=== PATIENT | female | born 1980 | race Caucasian/White ===

== ENCOUNTER 2016-09-09 21:20 | Emergency (ER) | payer OTHER ==
[2016-09-09 21:29] VITALS: BP 104/66; PULSE 87; TEMP 98.5; BMI 22.4
--- NOTE | 2016-09-10 00:07 | PDOC ---
History of Present Illness - General History Source: Patient Exam Limitations: No Limitations - History of Present Illness Initial Comments: 09/10/16 00:08 The patient is a 35 year old female with no significant past medical history, who presents to the ED with dysuria, urinary frequency and urinary urgency since early today. She reports superpubic pain secondary to urinary symptoms. She denies back pain. She reports having UTIs in the past with similar symptoms. She denies fever, chills, nausea, vomiting. <Toni Lynch - Last Filed: 09/10/16 00:08> - General History Source: Patient Exam Limitations: No Limitations <Viviane Henrandez - Last Filed: 09/10/16 00:59> - General Chief Complaint: Urinary Problem Stated Complaint: URINARY PROBLEM Past History <Toni Lynch - Last Filed: 09/10/16 00:08> - Psycho/Social/Smoking Cessation Hx Anxiety: No Suicidal Ideation: No Smoking History: Never smoked Have you smoked in the past 12 months: No Number of Cigarettes Smoked Daily: 0 If you are a former smoker, when did you quit?: 2YRS Information on smoking cessation initiated: No Hx Alcohol Use: No Drug/Substance Use Hx: No Substance Use Type: Alcohol Hx Substance Use Treatment: No <Viviane Hernandez - Last Filed: 09/10/16 00:59> - Past Medical History Allergies/Adverse Reactions: Allergies Allergy/AdvReac Type Severity Reaction Status Date / Time No Known Drug Allergies Allergy Verified 09/09/16 21:29 Home Medications: Ambulatory Orders Sulfamethoxazole/Trimethoprim [Bactrim Ds -] 1 tab PO BID #14 tablet 09/10/16 Review of Systems - Review of Systems Able to Perform ROS?: Yes Comments:: 09/10/16 00:08 GENERAL/CONSTITUTIONAL: No fever or chills. No weakness. HEAD, EYES, EARS, NOSE AND THROAT: No change in vision. No ear pain or discharge. No sore throat. CARDIOVASCULAR: No chest pain or shortness of breath. RESPIRATORY: No cough, wheezing, or hemoptysis. GASTROINTESTINAL: No nausea, vomiting, diarrhea or constipation. GENITOURINARY: + dysuria. + frequency + urgency. MUSCULOSKELETAL: No joint or muscle swelling or pain. No neck or back pain. SKIN: No rash NEUROLOGIC: No headache, vertigo, loss of consciousness, or change in strength/ sensation. ENDOCRINE: No increased thirst. No abnormal weight change. HEMATOLOGIC/LYMPHATIC: No anemia, easy bleeding, or history of blood clots. ALLERGIC/IMMUNOLOGIC: No hives or skin allergy. <Toni Lynch - Last Filed: 09/10/16 00:08> *Physical Exam - Vital Signs Last Vital Signs Temp Pulse Resp BP Pulse Ox 98.5 F 87 18 104/66 97 09/09/16 21:24 09/09/16 21:24 09/09/16 21:24 09/09/16 21:24 09/09/16 21:24 - Physical Exam Comments: 09/10/16 00:09 GENERAL: Awake, alert, and fully oriented, in no acute distress HEAD: No signs of trauma EYES: PERRLA, EOMI, sclera anicteric, conjunctiva clear ENT: Auricles normal inspection, hearing grossly normal, nares patent, oropharynx clear without exudates. Moist mucosa NECK: Normal ROM, supple, no lymphadenopathy, JVD, or masses LUNGS: Breath sounds equal, clear to auscultation bilaterally. No wheezes, and no crackles HEART: Regular rate and rhythm, normal S1 and S2, no murmurs, rubs or gallops ABDOMEN: Superpubic tenderness. soft, normoactive bowel sounds. No guarding, no rebound. No masses BACK: left CVA tenderness. EXTREMITIES: Normal range of motion, no edema. No clubbing or cyanosis. No cords, erythema, or tenderness NEUROLOGICAL: Normal speech, normal gait SKIN: Warm, Dry, normal turgor, no rashes or lesions noted. <Toni Lynch - Last Filed: 09/10/16 00:08> - Vital Signs Last Vital Signs Temp Pulse Resp BP Pulse Ox 98.5 F 87 18 104/66 97 09/09/16 21:24 09/09/16 21:24 09/09/16 21:24 09/09/16 21:24 09/09/16 21:24 <Viviane Hernandez - Last Filed: 09/10/16 00:59> Procedures - Bedside Ultrasound Other: REnal : see [facility] for report <Viviane Hernandez - Last Filed: 09/10/16 00:59> Medical Decision Making - Medical Decision Making 09/10/16 00:05 35 yo F with h/o frequent UTI, here with burning with urination since this am, frequency, urgency. no flank pain. no n/v no f/c. LMP one week ago. h/o irregular periods. no vaginal complaints. usually has been on cipro for infections. no other complaints. on exam awake alert lungs clear. heart RRR no m/r/g. abd soft mild suprapubic ttp. no rebound no guarding. mild left cva ttp. ext wwp skin warm and dry. alert and oriented x 3 differential: , uti, plan treat for uti with keflex, ucg culture. pyridium and tylenol 09/10/16 00:57 focused ED ultrasound performed renal, indication : hematuria, urinary sxs finding: bilateral kidneys scanned in two planes. no hydronephrosis noted.small lhyperechoic focus left kidney could represent stone or calcification kidneys normal in size. no cyst noted. bladder nondistended. impression: normal renal ultrasound no hydronephrosis. calcification vs. small stone in left kidney. 09/10/16 00:59 d/w pt she is still spotting from period. possible blood in urine from that. rec urology or obstetrics/gynecology nurse followup. dc on bactrim. <Viviane Hernandez - Last Filed: 09/10/16 00:59> *DC/Admit/Observation/Transfer - Attestations Scribe Attestion: 09/10/16 00:10 Documentation prepared by Toni Lynch, acting as medical sales specialist for Viviane Hernandez MD, MD. <Toni Lynch - Last Filed: 09/10/16 00:08> - Discharge Dispostion Admit: No <Viviane Hernandez - Last Filed: 09/10/16 00:59> Diagnosis at time of Disposition: Hematuria, UTI (urinary tract infection) - Prescriptions Prescriptions: Sulfamethoxazole/Trimethoprim [Bactrim Ds -] 1 tab PO BID #14 tablet - Referrals Referrals: Jessi Valentine [Primary Care Provider] - Hemant Way MD., MD [Staff Physician] - - Patient Instructions Printed Discharge Instructions: Urinary Tract Infection, Blood in Urine Additional Instructions: you should take bactrim twice daily x 7 days. return for persistant symtpoms, fever or any concerns. you should follow up with your manager simulation or a urologist to ensure that your blood in urine clears with treatment of infection. you can follow up with urologist Dr Way or Hai call to schedule see referral number.
[2016-09-10] MEDS ORDERED: SULFAMETHOXAZOLE/TRIMETHOPRIM 800MG/160MG D.S. TABLET PO ONE (00:08)
[2016-09-10] MEDS ORDERED: PHENAZOPYRIDINE HCL 100 MG TABLET (FP) PO ONE (00:08)
[2016-09-10] MEDS ORDERED: PHENAZOPYRIDINE HCL 100 MG TABLET (FP) ONE (00:27)
[2016-09-10] MEDS ORDERED: SULFAMETHOXAZOLE/TRIMETHOPRIM 800MG/160MG D.S. TABLET ONE (00:27)
[2016-09-10 00:34] LABS: URINE APPEARANCE CLEAR; URINE BILIRUBIN NEGATIVE (NEGATIVE); URINE COLOR YELLOW; URINE GLUCOSE (UA) NEGATIVE (NEGATIVE); URINE KETONE NEGATIVE (NEGATIVE); URINE LEUK ESTERASE NEGATIVE (NEGATIVE); URINE NITRITE NEGATIVE (NEGATIVE); URINE UROBILINOGEN NEGATIVE E.U./dl (0.2-1.0)
[2016-09-10 00:35] LABS: URINE BLOOD 3+ (NEGATIVE); URINE PROTEIN 1+ (NEGATIVE)
[2016-09-10 00:59] LABS: URINE MUCUS RARE; URINE RBC 2 /hpf (0-3); URINE WBC 2 /hpf (3-5)
== END 2016-09-10 01:28 | disposition home or self-care (01) ==
LOC: JER 21:20 → JERFT 21:20 → JER 09-10 01:28
DX: N39.0 Urinary tract infection, site not specified (principal); R31.9 Hematuria, unspecified
CPT/HCPCS: 81003; 81015; 84703; 87086; 99281-25

== ENCOUNTER 2018-07-04 15:01 | Emergency (ER) | payer OTHER ==
--- NOTE | 2018-07-04 15:11 | PDOC ---
Rapid Medical Evaluation Time Seen by Provider: 07/04/18 15:10 Medical Evaluation: Allergies Allergy/AdvReac Type Severity Reaction Status Date / Time No Known Drug Allergies Allergy Verified 07/04/18 15:10 07/04/18 15:10 I have performed a brief in-person evaluation of this patient. The patient presents with a chief complaint of: sore throat x 2 days, unable to jen po. H/o breast ca s/p mastectomy, chemo and xrt 2017 Pertinent physical exam findings:Mildly tachy but well renita w/ clear oropharynx I have ordered the following:strep The patient will proceed to the ED for further evaluation. 07/04/18 15:15 Discharge Disposition - Diagnosis Throat pain - Referrals - Patient Instructions - Post Discharge Activity
[2018-07-04 15:13] VITALS: BP 102/57; PULSE 102; TEMP 99.7; BMI 21.7
[2018-07-04] MEDS ORDERED: ONDANSETRON *ODT* 4 MG TABLET ONE (16:31)
--- NOTE | 2018-07-04 16:35 | PDOC ---
History of Present Illness - General Chief Complaint: Sore Throat Stated Complaint: SORE THROAT Time Seen by Provider: 07/04/18 15:10 History Source: Patient Exam Limitations: No Limitations - History of Present Illness Initial Comments: 07/04/18 16:44 Patient came to the emergency department for evaluation progress worsening sore throat pain, general malaise, and nausea. Has completed treatment for breast cancer last year, saw her oncologist 3 days ago who started her on tamoxifen. Patient states had onset of pain to her throat yesterday, is progressively worsened. Has runny nose, and nauseousness has caused her to feel dehydrated. Patient has taken no medications for relief of same. 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 Timing/Duration: unsure, 24 hours Severity: moderate Associated Symptoms: reports: cough, fever/chills Past History - Travel Traveled outside of the country in the last 30 days: No Close contact w/someone who was outside of country & ill: No - Past Medical History Allergies/Adverse Reactions: Allergies Allergy/AdvReac Type Severity Reaction Status Date / Time No Known Drug Allergies Allergy Verified 07/04/18 15:10 Home Medications: Ambulatory Orders Sulfamethoxazole/Trimethoprim [Bactrim Ds -] 1 tab PO BID #14 tablet 09/10/16 Azithromycin [Zithromax -] 250 mg PO UTDICT #6 tab 07/04/18 Ondansetron [Zofran *Odt*] 4 mg SL PRN PRN #14 od.tablet 07/04/18 COPD: No Other medical history: BREAST CA - Immunization History Immunization Up to Date: Yes - Suicide/Smoking/Psychosocial Hx Smoking History: Never smoked Have you smoked in the past 12 months: No Number of Cigarettes Smoked Daily: 0 If you are a former smoker, when did you quit?: 2YRS Hx Alcohol Use: No Drug/Substance Use Hx: No Substance Use Type: Alcohol Hx Substance Use Treatment: No Review of Systems - Review of Systems Able to Perform ROS?: Yes Is the patient limited Belarusian proficient: Yes Constitutional: Yes: Symptoms Reported, See HPI, Chills, Fever, Malaise HEENTM: Yes: Symptoms Reported, See HPI, Nose Congestion, Throat Pain, Throat Swelling, Difficulty Swallowing Respiratory: Yes: Symptoms reported Musculoskeletal: Yes: Symptoms Reported Integumentary: No: Symptoms Reported Neurological: Yes: Symptoms reported, See HPI, Headache, Weakness All Other Systems: Reviewed and Negative *Physical Exam - Vital Signs Last Vital Signs Temp Pulse Resp BP Pulse Ox 99.7 F H 102 H 18 102/57 L 96 07/04/18 15:10 07/04/18 15:10 07/04/18 15:10 07/04/18 15:10 07/04/18 15:10 - Physical Exam General Appearance: Yes: Nourished, Appropriately Dressed, Apparent Distress, Mild Distress, Moderate Distress HEENT: positive: KARIME, TMs Normal, Tonsillar Erythema, Nasal Congestion, Rhinorrhea. negative: Pharynx Normal, Tonsillar Exudate Neck: positive: Tender, Supple, Lymphadenopathy (R), Lymphadenopathy (L) Respiratory/Chest: positive: Lungs Clear, Normal Breath Sounds Gastrointestinal/Abdominal: positive: Soft. negative: Tender Musculoskeletal: positive: Normal Inspection Extremity: positive: Normal Capillary Refill, Normal Inspection, Normal Range of Motion Integumentary: positive: Dry, Warm, Pale, Moist (mucous membraine ), Other Neurologic: positive: safety risk lead II-XII NML intact, Fully Oriented, Alert, Normal Mood/ Affect, Normal Response, Motor Strength 5/5 *DC/Admit/Observation/Transfer Diagnosis at time of Disposition: Upper respiratory infection, viral - Discharge Dispostion Disposition: HOME Condition at time of disposition: Stable Decision to Admit order: No - Referrals - Patient Instructions Printed Discharge Instructions: DI for Viral Upper Respiratory Infection -- Adult Additional Instructions: Rest, drink lots of fluids: Teas, water, soups, Pedialyte Saltwater gargles Steamy showers/seem to face break up mucus Avoid contact with others until fevers and cough resolved Lots of handwashing and good hygiene Continue [id number] medications for symptomatic relief Tylenol or Motrin for fever and pain MaY USE Zofran tab every 8 hours for nausea and vomiting. START Zithoromax for worsen symptoms/ fevers greater than 101.5, cough with phlegm.. Notify Private Dr if needed to start Followup with private physician in one to 2 days as needed Return to emergency department for worsened symptoms, fevers, dehydration - Post Discharge Activity Forms/Work/School Notes: Back to Work
== END 2018-07-04 16:50 | disposition home or self-care (01) ==
LOC: JERFT 15:01
DX: J06.9 Acute upper respiratory infection, unspecified (principal); B97.89 Other viral agents as the cause of diseases classified elsewhere; Z85.3 Personal history of malignant neoplasm of breast; Z90.10 Acquired absence of unspecified breast and nipple
CPT/HCPCS: 87070; 87880; 99281-25

== ENCOUNTER 2018-12-25 09:57 | Emergency (ER) | payer OTHER ==
[2018-12-25 10:10] VITALS: TEMP 97.9; BMI 20.9
[2018-12-25] MEDS ORDERED: FAMOTIDINE 20 MG/50 ML IVPB 20 MG/50 ML MG IVPB ONE ×2 (10:54→11:08)
[2018-12-25] MEDS ORDERED: ONDANSETRON *ODT* 4 MG TABLET SL ONE ×2 (10:54→15:33)
[2018-12-25] MEDS ORDERED: MAG HYDROX/AL HYDROX/SIMETH 30 ML UNIT-DOSE CUP PO ONE (10:56)
[2018-12-25] MEDS ORDERED: ACETAMINOPHEN 1000 MG/100 ML VIAL (NON FORMULARY) IVPB ONE (10:56)
[2018-12-25] MEDS ORDERED: SODIUM CHLORIDE 1,000 ML IV STA ×2 (11:02→11:50)
[2018-12-25] MEDS ORDERED: ONDANSETRON *ODT* 4 MG TABLET ONE ×2 (11:07→15:48)
[2018-12-25] MEDS ORDERED: MAG HYDROX/AL HYDROX/SIMETH 30 ML UNIT-DOSE CUP ONE (11:08)
[2018-12-25] MEDS ORDERED: ACETAMINOPHEN INJECTION 100 ML IVPB ONE (11:08)
--- NOTE | 2018-12-25 11:11 | PDOC ---
History of Present Illness - General Chief Complaint: Nausea/Vomiting Stated Complaint: VOMITING Time Seen by Provider: 12/25/18 10:50 History Source: Patient Exam Limitations: Clinical Condition - History of Present Illness Travel History: No Initial Comments: 12/25/18 11:18 Patient with no significant past medical history presented with complaint of severe epigastric abdominal pain since this morning upon week. Patient reports 3-day history of drinking after her boyfriend left her which is been drinking a lot of vodka and has not been eating for the past 3 days. Patient report multiple episode of vomiting this morning with worsening abdominal pain from vomiting. Patient has not taken anything for symptoms. Denies fever, chills, diarrhea constipation. Denies hematemesis or blood in stool. Timing/Duration: reports: constant Quality: reports: severe, burning Abdominal Pain Onset Location: reports: epigastric Pain Radiation: reports: no radiation Activities at Onset: reports: emotional upset Treatment Prior to Arrive: worse with: other (nothing) Aggravating Factors: improves with: Eating (no food for 3 days) Past History - Past Medical History Allergies/Adverse Reactions: Allergies Allergy/AdvReac Type Severity Reaction Status Date / Time No Known Drug Allergies Allergy Verified 07/04/18 15:10 Home Medications: Ambulatory Orders Sulfamethoxazole/Trimethoprim [Bactrim Ds -] 1 tab PO BID #14 tablet 09/10/16 Azithromycin [Zithromax -] 250 mg PO UTDICT #6 tab 07/04/18 Ondansetron [Zofran *Odt*] 4 mg SL PRN PRN #14 od.tablet 07/04/18 Mag Hydrox/Aluminum Hyd/Simeth [Maalox Advanced Suspension] 30 ml PO Q8H PRN # 200 ml 12/25/18 Ondansetron [Zofran *Odt*] 4 mg SL TID PRN #12 od.tablet 12/25/18 Pantoprazole Sodium [Protonix -] 40 mg PO DAILY #7 tablet.ec 12/25/18 COPD: No - Immunization History Immunization Up to Date: Yes - Psycho Social/Smoking Cessation Hx Smoking History: Never smoked Have you smoked in the past 12 months: No Number of Cigarettes Smoked Daily: 0 If you are a former smoker, when did you quit?: 2YRS Information on smoking cessation initiated: No Hx Alcohol Use: No Drug/Substance Use Hx: No Substance Use Type: Alcohol Hx Substance Use Treatment: No Abd/GI Specific PMHX - Complaint Specific PMHX Colitis: No Diverticulitis: No Gall Bladder Disease: No GERD: No Hepatitis: No Irritable Bowel Synd (IBS): No Pancreatitis: No GI Ulcer Disease: No Review of Systems - Review of Systems Able to Perform ROS?: Yes Is the patient limited Paraguayan proficient: No Constitutional: No: Chills, Fever, Malaise HEENTM: No: Symptoms Reported, See HPI, Eye Pain, Blurred Vision, Tearing, Recent change in vision, Double Vision, Cataracts, Ear Pain, Ocular Prothesis, Ear Discharge, Nose Pain, Nose Congestion, Tinnitus, Nose Bleeding, Hearing Loss , Throat Pain, Throat Swelling, Mouth Pain, Dental Problems, Difficulty Swallowing, Mouth Swelling, Other Respiratory: No: Symptoms reported, See HPI, Cough, Orthopnea, Shortness of Breath, SOB with Exertion, SOB at Rest, Stridor, Wheezing, Productive cough, Hemoptysis, Other Cardiac (ROS): No: Symptoms Reported, See HPI, Chest Pain, Edema, Irregular Heart Rate, Lightheadedness, Palpitations, Syncope, Chest Tightness, Other ABD/GI: Yes: Symptoms Reported, See HPI, Nausea, Vomiting, Abdominal cramping ( epigastric pain). No: Abdominal Distended, Abd. Pain w/ defecation, Blood Streaked Bowels, Constipated, Diarrhea, Difficulty Swallowing, Poor Appetite, Poor Fluid Intake, Rectal Bleeding, Indigestion, Tarry Stools : No: Burning, Dysuria, Frequency, Urgency Integumentary: No: Symptoms Reported Neurological: No: Symptoms reported, Weakness, Dizziness All Other Systems: Reviewed and Negative *Physical Exam - Vital Signs Last Vital Signs Temp Pulse Resp BP Pulse Ox 97.9 F 94 H 18 121/87 99 12/25/18 10:02 12/25/18 10:02 12/25/18 10:02 12/25/18 10:02 12/25/18 10:02 - Physical Exam Comments: 12/25/18 11:10 GENERAL: Well developed, well nourished. Awake and alert in moderate acute distress. HEENT: Normocephalic, atraumatic. PERRLA, EOMI. No conjunctival pallor. Sclera are non-icteric. Moist mucous membranes. Oropharynx is clear. NECK: Supple. Full ROM. CARDIOVASCULAR: Regular rate and rhythm. No murmurs, rubs, or gallops. Distal pulses are 2+ and symmetric. PULMONARY: No evidence of respiratory distress. Lungs clear to auscultation bilaterally. No wheezing, rales or rhonchi. ABDOMINAL: Soft. Moderate epigastric tenderness. Non-distended. No rebound or guarding. No organomegaly. Normoactive bowel sounds. MUSCULOSKELETAL Normal range of motion at all joints. SKIN: Warm and dry. Normal capillary refill. No rashes. No cyanosis. NEUROLOGICAL: Alert, awake, appropriate. Gait is normal without ataxia. PSYCHIATRIC: Cooperative. Good eye contact. Appropriate mood General Appearance: Yes: Nourished, Appropriately Dressed, Apparent Distress, Moderate Distress ED Treatment Course - LABORATORY CBC & Chemistry Diagram: 12/25/18 11:04 12/25/18 11:04 Medical Decision Making - Medical Decision Making 12/25/18 11:20 Patient with no significant past medical history presented with complaint of severe epigastric abdominal pain since this morning upon week. Patient reports 3-day history of drinking after her boyfriend left her which is been drinking a lot of vodka and has not been eating for the past 3 days. Patient report multiple episode of vomiting this morning with worsening abdominal pain from vomiting. Patient has not taken anything for symptoms. Denies fever, chills, diarrhea constipation. Denies hematemesis or blood in stool. Exam significant for patient complaint of severe abdominal pain and guarding epigastric area with moderate tenderness on exam. Patient afebrile. Patient symptoms likely gastritis from alcohol abuse. CBC, CMP, lipase and beta-hCG lab ordered. IV hydration with 1 L normal saline ordered. Pepcid 20 mg IV ordered for epigastric pain and Zofran 4 mg sublingual ordered for nausea vomiting. Tylenol 1 g IV ordered for pain. Reassess after medication in 20 minutes 12/25/18 11:51 Patient reports still having burning pain in the epigastric Pain. Viscous lidocaine ordered for pain 12/25/18 13:14 Patient reported mild improvement with epigastric burning pain after Pepcid IV, Maalox p.o. and viscous lidocaine. IV Protonix ordered to help with epigastric pain. Cardiac profile lab ordered to rule out cardiac pathology. CBC and chemistry level with no acute abnormality. Beta-hCG negative. Abdominal ultrasound ordered to rule out acute abdominal pathology 12/25/18 14:53 Cardiac profile negative. Abdominal ultrasound shows no acute pathology. Chest x-ray shows no acute pathology which shows port which according to patient was placed when she had breast cancer for chemo and was supposed to be removed a year ago by surgeon forgot to remove the point and is being scheduled for removal in 2 months. Patient reports persistent 8 out of 10 pain in epigastric region. Morphine 2 mg IV ordered for pain and patient will be discharged home on p.o. Protonix 40 mg once daily and Maalox. Abdominal pain with GI follow-up. 12/25/18 15:26 EKG shows normal sinus rhythm. Patient stable for discharge with GI follow-up Discharge - Discharge Information Problems reviewed: Yes Clinical Impression/Diagnosis: Alcohol abuse Abdominal pain Qualifiers: Abdominal location: epigastric Qualified Code(s): R10.13 - Epigastric pain Nausea & vomiting Qualifiers: Vomiting type: unspecified Vomiting Intractability: non-intractable Qualified Code(s): R11.2 - Nausea with vomiting, unspecified Condition: Stable Disposition: HOME - Admission No - Additional Discharge Information Prescriptions: Mag Hydrox/Aluminum Hyd/Simeth [Maalox Advanced Suspension] 30 ml PO Q8H PRN # 200 ml PRN Reason: abdominal discomfort Ondansetron [Zofran *Odt*] 4 mg SL TID PRN #12 od.tablet PRN Reason: vomiting Pantoprazole Sodium [Protonix -] 40 mg PO DAILY #7 tablet.ec - Follow up/Referral Referrals: Heriberto Enrique DO [Staff Physician] - - Patient Discharge Instructions Patient Printed Discharge Instructions: DI for Alcohol Abuse, DI for Vomiting - - Adult Additional Instructions: Your lab work and abdominal ultrasound are normal. Your chest x-ray was normal. Symptoms is likely caused by alcohol abuse. Take prescribed medication as prescribed for abdominal discomfort. Refrain from drinking alcohol for the next few days. Follow-up referred to GI doctor if symptoms persist for more than 2 days. Increase fluid intake - Post Discharge Activity
[2018-12-25 11:20] LABS: BASO % 0.3 % (0-2.0); EOS % 0.1 % (0-4.5); HEMOGLOBIN 13.2 GM/dL (10.7-15.3); LYMPH % 6.8 % (8-40); MCH 31.9 pg (25.7-33.7); MCHC 33.8 g/dl (32.0-36.0); MEAN CELL VOLUME 94.5 fl (80-96); MONO % 4.8 % (3.8-10.2); PLATELET COUNT 270 K/MM3 (134-434); RBC 4.12 M/mm3 (3.60-5.2); RDW 13.3 % (11.6-15.6); WHITE BLOOD COUNT 9.5 K/mm3 (4.0-10.0)
[2018-12-25] MEDS ORDERED: LIDOCAINE VISCOUS 2% ORAL/TOP 20 ML UNIT-DOSE CUP MM ONE (11:48)
[2018-12-25] MEDS ORDERED: LIDOCAINE VISCOUS 2% ORAL/TOP 20 ML UNIT-DOSE CUP ONE (11:51)
[2018-12-25 11:55] LABS: ALBUMIN 4.7 g/dl (3.4-5.0); ALK PHOS 111 U/L (45-117); ANION GAP 11 MMOL/L (8-16); BILIRUBIN,TOTAL 0.7 mg/dL (0.2-1); BLOOD UREA NITROGEN 23.6 mg/dL (7-18); CALCIUM 9.6 mg/dL (8.5-10.1); CHLORIDE 101 mmol/L (98-107); CO2 27 mmol/L (21-32); CREATININE 0.9 mg/dL (0.55-1.3); GLUCOSE,RANDOM 133 mg/dL (74-106); LIPASE 43 U/L (73-393); SGOT/AST 33 U/L (15-37); SGPT/ALT 35 U/L (13-61); SODIUM 139 mmol/L (136-145); TOT PROT 8.5 g/dl (6.4-8.2)
[2018-12-25] MEDS ORDERED: morphine CARPU-JECT 2 MG/1 ML DISP.SYRIN IVPUSH ONE (14:52)
[2018-12-25] MEDS ORDERED: MORPHINE SULFATE 2 MG/ML VIAL ONE (15:11)
[2018-12-25 15:18] VITALS: BP 130/79; PULSE 82
--- NOTE | 2018-12-26 12:52 | EKG ---
Test Reason : Blood Pressure : / mmHG Vent. Rate : 092 BPM Atrial Rate : 092 BPM P-R Int : 140 ms QRS Dur : 078 ms QT Int : 384 ms P-R-T Axes : 058 067 054 degrees QTc Int : 474 ms NORMAL SINUS RHYTHM NORMAL ECG NO PREVIOUS ECGS AVAILABLE Confirmed by TONY EDMONDS MD ([id number]) on 12/26/2018 12:51:53 PM Referred By: Confirmed By:TONY EDMONDS MD
== END 2018-12-25 16:00 | disposition home or self-care (01) ==
LOC: JER 09:57
PROC: 3E033NZ Introduction of Analgesics, Hypnotics, Sedatives into Peripheral Vein, Percutaneous Approach (ICD-10-PCS; principal; 2018-12-25)
PROC: 3E033GC Introduction of Other Therapeutic Substance into Peripheral Vein, Percutaneous Approach (ICD-10-PCS; 2018-12-25)
PROC: 3E0337Z Introduction of Electrolytic and Water Balance Substance into Peripheral Vein, Percutaneous Approach (ICD-10-PCS; 2018-12-25)
DX: F10.10 Alcohol abuse, uncomplicated (principal); R10.12 Left upper quadrant pain; R11.2 Nausea with vomiting, unspecified; Z87.891 Personal history of nicotine dependence
CPT/HCPCS: 36415; 71046-TC-FY; 76705-TC; 80053; 82550; 83690; 84484; 84702; 85025; 93005; 93010; 99283-25; J0131; J7030; Q0162

== ENCOUNTER 2021-02-18 19:57 | Emergency (ER) | payer OTHER ==
[2021-02-18 20:10] VITALS: BP 124/82; PULSE 82; TEMP 98.3; BMI 24.7
[2021-02-18] MEDS ORDERED: KETOROLAC TROMETHAMINE 30 MG/1 ML VIAL IM ONE (20:53)
[2021-02-18] MEDS ORDERED: KETOROLAC TROMETHAMINE 30 MG/1 ML VIAL ONE (20:58)
[2021-02-18] MEDS ORDERED: LIDOCAINE 5% TOPICAL PATCH TP ONE (21:47)
[2021-02-18] MEDS ORDERED: LIDOCAINE 5% TOPICAL PATCH ONE (22:11)
== END 2021-02-18 22:25 | disposition home or self-care (01) ==
LOC: JER 19:57
PROC: 3E0233Z Introduction of Anti-inflammatory into Muscle, Percutaneous Approach (ICD-10-PCS; principal; 2021-02-18)
DX: R07.81 Pleurodynia (principal); W01.0XXA Fall on same level from slipping, tripping and stumbling without subsequent striking against object, initial encounter
CPT/HCPCS: 71101-TC-LT-FY; 99284-25

== ENCOUNTER 2021-10-24 21:28 | Emergency (ER) | payer OTHER ==
[2021-10-24 21:43] VITALS: BP 110/71; PULSE 103; RESP 18; TEMP 97.9; BMI 23.3
[2021-10-24 23:13] LABS: BASO % 0.7 % (0-2.0); EOS % 3.6 % (0-4.5); HEMATOCRIT 40.9 % (32.4-45.2); HEMOGLOBIN 14.1 GM/dL (10.7-15.3); LYMPH % 22.4 % (8-40); MCHC 34.3 g/dl (32.0-36.0); MEAN PLT VOLUME 7.8 fl (7.5-11.1); MONO % 13.1 % (3.8-10.2); NEUT % 60.2 % (42.8-82.8); PLATELET COUNT 213 10^3/uL (134-434); RBC 4.27 M/mm3 (3.60-5.2); RDW 13.3 % (11.6-15.6); WHITE BLOOD COUNT 3.4 K/mm3 (4.0-10.0)
[2021-10-24 23:33] LABS: ALBUMIN 4.4 g/dl (3.4-5.0); CALCIUM 8.6 mg/dL (8.5-10.1)
[2021-10-24 23:34] LABS: BLOOD UREA NITROGEN 5.2 mg/dL (7-18)
[2021-10-24 23:36] LABS: CREATININE 0.6 mg/dL (0.55-1.3)
[2021-10-24 23:38] LABS: BILIRUBIN,TOTAL 0.3 mg/dL (0.2-1); TOT PROT 8.2 g/dl (6.4-8.2)
[2021-10-25] MEDS ORDERED: DIPHTH,PERTUSS(ACELL),TET 0.5 ML DISP.SYRIN IM ONE ×2 (01:15→03:43)
[2021-10-25] MEDS ORDERED: ONDANSETRON *ODT* 4 MG TABLET ONE (04:17)
== END 2021-10-25 06:19 | disposition home or self-care (01) ==
LOC: JER 21:28
PROC: 3E0234Z Introduction of Serum, Toxoid and Vaccine into Muscle, Percutaneous Approach (ICD-10-PCS; principal; 2021-10-25)
DX: S00.511A Abrasion of lip, initial encounter (principal); F10.10 Alcohol abuse, uncomplicated; V89.2XXA Person injured in unspecified motor-vehicle accident, traffic, initial encounter; Y92.9 Unspecified place or not applicable
CPT/HCPCS: 36415; 70450-TC; 70486-TC; 71260-TC; 72125-TC; 74177-TC; 80053; 84703; 85025; 90715; 93005; 93010; 99285-25; Q9967

== ENCOUNTER 2022-01-17 20:29 | Emergency (ER) | payer OTHER ==
[2022-01-17 20:41] VITALS: BP 110/71; PULSE 86; RESP 17; TEMP 97.9; BMI 22.6
[2022-01-17 22:48] LABS: EPI CELLS 23 /uL (0-25.1); HYALINE CASTS 1 /uL (0-3.1); URINE APPEARANCE CLEAR; URINE BACTERIA 632 /uL (0-1359); URINE BILIRUBIN NEGATIVE (NEGATIVE); URINE COLOR YELLOW; URINE GLUCOSE (UA) NEGATIVE (NEGATIVE); URINE KETONE NEGATIVE (NEGATIVE); URINE LEUK ESTERASE 1+ (NEGATIVE); URINE NITRITE NEGATIVE (NEGATIVE); URINE PROTEIN TRACE (NEGATIVE); URINE RBC 15 /uL (0-23.9); URINE UROBILINOGEN 0.2 mg/dL (0.2-1.0); URINE WBC 78 /uL (0-25.8)
[2022-01-17] MEDS ORDERED: NITROFURANTOIN MACROCRYSTAL 50 MG CAPSULE (FP) ONE (23:07)
[2022-01-17] MEDS ORDERED: NITROFURANTOIN MACROCRYSTAL 50 MG CAPSULE (FP) PO SCH (23:15)
== END 2022-01-17 23:18 | disposition home or self-care (01) ==
LOC: JER 20:29 → JERFT 20:29 → JER 23:18
DX: N30.01 Acute cystitis with hematuria (principal)
CPT/HCPCS: 81003; 87086; 99283-25

== ENCOUNTER 2022-03-25 05:57 | Emergency (ER) | payer OTHER ==
[2022-03-25 06:12] VITALS: BP 140/82; PULSE 112; RESP 20; TEMP 101.1; BMI 22.6
[2022-03-25] MEDS ORDERED: ACETAMINOPHEN 500 MG TABLET (FP) PO ONE (06:34)
[2022-03-25] MEDS ORDERED: ACETAMINOPHEN 500 MG TABLET (FP) ONE (06:38)
[2022-03-25] MEDS ORDERED: DEXAMETHASONE 4 MG TABLET (FP) PO ONE (08:23)
[2022-03-25] MEDS ORDERED: DEXAMETHASONE 4 MG TABLET (FP) ONE (08:38)
== END 2022-03-25 09:13 | disposition home or self-care (01) ==
LOC: JER 05:57
DX: R50.9 Fever, unspecified (principal); J02.9 Acute pharyngitis, unspecified; R09.81 Nasal congestion
CPT/HCPCS: 0241U-QW; 71046-TC-FY; 99284-25

== ENCOUNTER 2022-06-20 17:48 | Inpatient (IN) | payer OTHER ==
[2022-06-20 20:14] VITALS: BMI 22.6
[2022-06-20] MEDS ORDERED: BISMUTH SUBSALICYLATE 524 MG/30 ML PO PRN (22:29)
[2022-06-20] MEDS ORDERED: DICYCLOMINE HCL 10 MG CAPSULE PO PRN (22:29)
[2022-06-20] MEDS ORDERED: NALOXONE HCL 0.4 MG/ML VIAL IM PRN (22:29)
[2022-06-20] MEDS ORDERED: POLYETHYLENE GLYCOL (HEALTHYLAX) 3350 17 GM PACKET PO PRN (22:29)
[2022-06-20] MEDS ORDERED: IBUPROFEN 600 MG TABLET (FP) PO PRN (22:29)
[2022-06-20] MEDS ORDERED: ACETAMINOPHEN 325 MG TABLET (FP) PO PRN (22:29)
[2022-06-20] MEDS ORDERED: MAGNESIUM HYDROX 2400MG/30ML ORAL SUSPENSION 30 ML CUP PO PRN (22:29)
[2022-06-20] MEDS ORDERED: guaiFENesin 600 MG TABLET.ER (FP) PO PRN (22:29)
[2022-06-20] MEDS ORDERED: NALOXONE HCL (KLOXXADO) 8 MG SPRAY NS PRN (22:29)
[2022-06-20] MEDS ORDERED: BENZONATATE 200 MG CAPSULE PO PRN (22:29)
[2022-06-20] MEDS ORDERED: LOPERAMIDE HCL 2 MG CAPSULE PO PRN (22:29)
[2022-06-20] MEDS ORDERED: ONDANSETRON *ODT* 4 MG TABLET SL PRN (22:29)
[2022-06-20] MEDS ORDERED: IBUPROFEN 400 MG TABLET (FP) PO PRN (22:29)
[2022-06-20] MEDS ORDERED: BENZOCAINE/MENTHOL (CHLORASEPTIC ) LOZENGE MM PRN (22:29)
[2022-06-20] MEDS ORDERED: METHOCARBAMOL 500 MG TABLET PO PRN (22:29)
[2022-06-20] MEDS ORDERED: MAG HYDROX/AL HYDROX/SIMETH 30 ML UNIT-DOSE CUP PO PRN (22:29)
[2022-06-20] MEDS ORDERED: NICOTINE 10 MG CARTRIDGE (INHALER) IH PRN (22:29)
[2022-06-21 06:49] VITALS: RESP 16
[2022-06-21] MEDS ORDERED: chlordiazePOXIDE HCL 25 MG CAPSULE PO PRN (09:55)
[2022-06-21] MEDS ORDERED: PRENATAL VITAMINS W/ FOLIC ACID TABLET (FP) PO SCH (10:00)
[2022-06-21 10:18] VITALS: BP 101/65; PULSE 90; TEMP 98
[2022-06-21] MEDS ORDERED: chlordiazePOXIDE HCL 25 MG CAPSULE PO SCH (11:00)
[2022-06-21 11:29] LABS: HEMATOCRIT 37.2 % (32.4-45.2); MCHC 34.9 g/dl (32.0-36.0); MEAN CELL VOLUME 94.6 fl (80-96); MEAN PLT VOLUME 8.4 fl (7.5-11.1); PLATELET COUNT 240 10^3/uL (134-434); RBC 3.93 M/mm3 (3.60-5.2); WHITE BLOOD COUNT 3.8 K/mm3 (4.0-10.0)
[2022-06-21 11:53] LABS: CALCIUM 9.8 mg/dL (8.5-10.1)
[2022-06-21 11:55] LABS: ALBUMIN 3.8 g/dl (3.4-5.0); BILIRUBIN,TOTAL 1.1 mg/dL (0.2-1); BLOOD UREA NITROGEN 10.2 mg/dL (7-18)
[2022-06-21 11:57] LABS: CREATININE 0.6 mg/dL (0.55-1.3)
[2022-06-21 11:59] LABS: TOT PROT 7.2 g/dl (6.4-8.2)
[2022-06-21] MEDS ORDERED: MELATONIN 5 MG TABLETS PO SCH (22:00)
[2022-06-21] MEDS ORDERED: THIAMINE HCL 100 MG TABLET (FP) PO SCH (22:00)
[2022-06-23] MEDS ORDERED: chlordiazePOXIDE HCL 25 MG CAPSULE PO SCH (05:00)
[2022-06-24] MEDS ORDERED: chlordiazePOXIDE HCL 10 MG CAPSULE PO PRN
[2022-06-24] MEDS ORDERED: chlordiazePOXIDE HCL 10 MG CAPSULE PO SCH (05:00)
[2022-06-25] MEDS ORDERED: chlordiazePOXIDE HCL 10 MG CAPSULE PO SCH (05:00)
[2022-06-26] MEDS ORDERED: chlordiazePOXIDE HCL 10 MG CAPSULE PO ONE (05:00)
== END 2022-06-21 12:30 | disposition home or self-care (01) | DRG 774 ==
LOC: YASAS 17:48 → Y3N 23:35
PROVIDERS: ADMIT Allergy & Immunology; ATTEND Surgery
PROC: HZ2ZZZZ Detoxification Services for Substance Abuse Treatment (ICD-10-PCS; principal; 2022-06-19)
DX: F10.230 Alcohol dependence with withdrawal, uncomplicated (principal); F14.20 Cocaine dependence, uncomplicated; F17.210 Nicotine dependence, cigarettes, uncomplicated; Z85.3 Personal history of malignant neoplasm of breast; Z90.11 Acquired absence of right breast and nipple
CPT/HCPCS: 36415; 80053; 81025; 85027; 86780; 93005; 93010; C9803-CS; U0003; U0005

== ENCOUNTER 2022-07-31 20:05 | Emergency (ER) | payer OTHER ==
[2022-07-31 20:15] VITALS: BP 107/67; PULSE 94; RESP 18; TEMP 98.2; BMI 21.1
[2022-07-31] MEDS ORDERED: FOLIC ACID INJECTION - 1 MG, THIAMINE HCL 100 MG, MULTIVIT INJECTION ADULT 10 ML in SOD... IVPB ONE (20:37)
[2022-07-31 21:26] LABS: BASO % 0.7 % (0-2.0); EOS % 1.8 % (0-4.5); HEMATOCRIT 39.3 % (32.4-45.2); HEMOGLOBIN 13.7 GM/dL (10.7-15.3); LYMPH % 36.5 % (8-40); MCH 33.1 pg (25.7-33.7); MCHC 34.7 g/dl (32.0-36.0); MEAN CELL VOLUME 95.2 fl (80-96); MEAN PLT VOLUME 8.6 fl (7.5-11.1); MONO % 9.5 % (3.8-10.2); NEUT % 51.5 % (42.8-82.8); PLATELET COUNT 216 10^3/uL (134-434); RBC 4.13 M/mm3 (3.60-5.2); RDW 12.8 % (11.6-15.6); WHITE BLOOD COUNT 4.9 K/mm3 (4.0-10.0)
[2022-07-31 21:34] LABS: INR 1.03 (0.83-1.09); PROTHROMBIN TIME (PATIENT) 11.9 SEC (9.7-13.0)
[2022-07-31 21:37] LABS: ACTIVATED PTT 31.5 SECONDS (25.2-36.5)
[2022-07-31 21:43] LABS: POTASSIUM 4.1 mmol/L (3.5-5.1)
[2022-07-31 21:45] LABS: ALBUMIN 4.3 g/dl (3.4-5.0)
[2022-07-31 21:46] LABS: BLOOD UREA NITROGEN 10.6 mg/dL (7-18)
[2022-07-31 21:49] LABS: CREATININE 0.5 mg/dL (0.55-1.3)
[2022-07-31 21:51] LABS: BILIRUBIN,TOTAL 0.2 mg/dL (0.2-1); TOT PROT 8.1 g/dl (6.4-8.2)
== END 2022-08-01 00:20 | disposition home or self-care (01) ==
LOC: JER 20:05
PROC: 3E0336Z Introduction of Nutritional Substance into Peripheral Vein, Percutaneous Approach (ICD-10-PCS; principal; 2022-07-31)
PROC: 3E0336Z Introduction of Nutritional Substance into Peripheral Vein, Percutaneous Approach (ICD-10-PCS; 2022-07-31)
PROC: 3E0336Z Introduction of Nutritional Substance into Peripheral Vein, Percutaneous Approach (ICD-10-PCS; 2022-07-31)
PROC: 3E0336Z Introduction of Nutritional Substance into Peripheral Vein, Percutaneous Approach (ICD-10-PCS; 2022-07-31)
PROC: 3E0336Z Introduction of Nutritional Substance into Peripheral Vein, Percutaneous Approach (ICD-10-PCS; 2022-08-01)
PROC: 3E0336Z Introduction of Nutritional Substance into Peripheral Vein, Percutaneous Approach (ICD-10-PCS; 2022-08-01)
PROC: 3E0336Z Introduction of Nutritional Substance into Peripheral Vein, Percutaneous Approach (ICD-10-PCS; 2022-08-01)
PROC: 3E0336Z Introduction of Nutritional Substance into Peripheral Vein, Percutaneous Approach (ICD-10-PCS; 2022-08-01)
DX: F10.929 Alcohol use, unspecified with intoxication, unspecified (principal); W01.198A Fall on same level from slipping, tripping and stumbling with subsequent striking against other object, initial encounter; Y93.01 Activity, walking, marching and hiking; Y92.838 Other recreation area as the place of occurrence of the external cause
CPT/HCPCS: 36415; 70450-TC; 72125-TC; 80053; 80307; 84703; 85025; 85610; 85730; 86850; 86900; 86901; 96365; 96366; 99284-25

== ENCOUNTER 2022-11-18 02:51 | Emergency (ER) | payer OTHER ==
[2022-11-18 03:07] VITALS: BMI 21.9
[2022-11-18] MEDS ORDERED: AMPICILLIN NA/SULBACTAM NA 3 GM in SODIUM CHLORIDE 100 ML IVPB ONE (03:38)
[2022-11-18] MEDS ORDERED: morphine CARPU-JECT 4 MG/1 ML DISP.SYRIN IVPUSH ONE ×2 (03:51→06:31)
[2022-11-18] MEDS ORDERED: AMPICILLIN NA/SULBACTAM NA 3 GM VIAL ONE (04:02)
[2022-11-18] MEDS ORDERED: morphine SULFATE 4 MG/ML VIAL ONE ×2 (04:02→06:43)
[2022-11-18 04:09] LABS: BASO % 0.5 % (0-2.0); EOS % 2.3 % (0-4.5); HEMATOCRIT 39.2 % (32.4-45.2); HEMOGLOBIN 13.7 GM/dL (10.7-15.3); LYMPH % 27.8 % (8-40); MCHC 34.8 g/dl (32.0-36.0); MEAN CELL VOLUME 94.8 fl (80-96); MEAN PLT VOLUME 7.7 fl (7.5-11.1); MONO % 9.9 % (3.8-10.2); NEUT % 59.5 % (42.8-82.8); PLATELET COUNT 182 10^3/uL (134-434); RBC 4.14 M/mm3 (3.60-5.2); WHITE BLOOD COUNT 5.1 K/mm3 (4.0-10.0)
[2022-11-18] MEDS ORDERED: VANCOMYCIN 1,000 MG in DEXTROSE 5%-WATER - 250 ML IVPB ONE (04:16)
[2022-11-18 04:20] LABS: CHLORIDE 110 mmol/L (98-107); POTASSIUM 3.8 mmol/L (3.5-5.1); SODIUM 143 mmol/L (136-145)
[2022-11-18 04:22] LABS: ALBUMIN 4.4 g/dl (3.4-5.0); ANION GAP 9 MMOL/L (8-16); CALCIUM 9.1 mg/dL (8.5-10.1); CO2 24 mmol/L (21-32); GLUCOSE,RANDOM 104 mg/dL (74-106)
[2022-11-18 04:23] LABS: BLOOD UREA NITROGEN 12.2 mg/dL (7-18)
[2022-11-18] MEDS ORDERED: VANCOMYCIN 1 GRAM (PRE-DOCKED) 1,000 MG/250 ML BAG IVPB ONE (04:23)
[2022-11-18 04:25] LABS: SGPT/ALT 70 U/L (13-61)
[2022-11-18 04:26] LABS: CREATININE 0.6 mg/dL (0.55-1.3); SGOT/AST 49 U/L (15-37)
[2022-11-18 04:27] LABS: BILIRUBIN,TOTAL 0.3 mg/dL (0.2-1); TOT PROT 8.1 g/dl (6.4-8.2)
[2022-11-18 04:28] LABS: ALK PHOS 83 U/L (45-117)
[2022-11-18] MEDS ORDERED: ACETAMINOPHEN 1000 MG/100 ML BAG IVPB ONE (05:07)
[2022-11-18] MEDS ORDERED: KETOROLAC TROMETHAMINE 15 MG/ML VIAL IVPUSH ONE (05:07)
[2022-11-18] MEDS ORDERED: KETOROLAC TROMETHAMINE 15 MG/ML VIAL ONE (05:08)
[2022-11-18] MEDS ORDERED: ACETAMINOPHEN INJECTION 100 ML IVPB ONE (05:09)
[2022-11-18 06:46] LABS: ERYTHROCYTE SEDIMENTATION RATE 4 mm/hr (0-20)
[2022-11-18 06:49] VITALS: BP 109/73; PULSE 78; RESP 18; TEMP 98
== END 2022-11-18 06:51 | disposition short-term general hospital (02) ==
LOC: JER 02:51
PROC: 3E03329 Introduction of Other Anti-infective into Peripheral Vein, Percutaneous Approach (ICD-10-PCS; principal; 2022-11-18)
PROC: 3E033NZ Introduction of Analgesics, Hypnotics, Sedatives into Peripheral Vein, Percutaneous Approach (ICD-10-PCS; 2022-11-18)
PROC: 3E0333Z Introduction of Anti-inflammatory into Peripheral Vein, Percutaneous Approach (ICD-10-PCS; 2022-11-18)
PROC: 3E033GC Introduction of Other Therapeutic Substance into Peripheral Vein, Percutaneous Approach (ICD-10-PCS; 2022-11-18)
PROC: 3E03329 Introduction of Other Anti-infective into Peripheral Vein, Percutaneous Approach (ICD-10-PCS; 2022-11-18)
PROC: 3E033GC Introduction of Other Therapeutic Substance into Peripheral Vein, Percutaneous Approach (ICD-10-PCS; 2022-11-18)
DX: M79.632 Pain in left forearm (principal); S51.852A Open bite of left forearm, initial encounter; S20.111A Abrasion of breast, right breast, initial encounter; S20.112A Abrasion of breast, left breast, initial encounter; M25.532 Pain in left wrist; R22.32 Localized swelling, mass and lump, left upper limb; W55.01XA Bitten by cat, initial encounter; W55.03XA Scratched by cat, initial encounter
CPT/HCPCS: 36415; 73090-TC-LT-FY; 73110-TC-LT-FY; 80053; 84703; 85025; 85651; 86140; 99285-25

== ENCOUNTER 2024-03-05 17:13 | Emergency (ER) | payer OTHER ==
[2024-03-05 17:49] VITALS: BP 132/105; PULSE 96; RESP 18; TEMP 97.9; BMI 23.8
[2024-03-05] MEDS ORDERED: ALBUTEROL SO4 2.5/IPRATROPIUM 0.5 INH SOL 3 ML VIAL.NEB. NEB ONE (18:18)
[2024-03-05] MEDS: ALBUTEROL SO4 2.5/IPRATROPIUM 0.5 INH SOL 3 ML VIAL.NEB. NEB ONE (18:44)
== END 2024-03-05 21:00 | disposition home or self-care (01) ==
LOC: JER 17:13
PROC: 3E0F7GC Introduction of Other Therapeutic Substance into Respiratory Tract, Via Natural or Artificial Opening (ICD-10-PCS; principal; 2024-03-05)
DX: J40 Bronchitis, not specified as acute or chronic (principal); R05.9 Cough, unspecified; Z20.822 Contact with and (suspected) exposure to COVID-19
CPT/HCPCS: 0241U-QW; 71046-TC-FY; 99284-25

== ENCOUNTER 2024-03-12 01:08 | Emergency (ER) | payer OTHER ==
[2024-03-12 01:16] VITALS: BMI 22.7
[2024-03-12] MEDS ORDERED: ACETAMINOPHEN 325 MG TABLET (FP) ONE (02:46)
[2024-03-12] MEDS: ACETAMINOPHEN 500 MG TABLET (FP) PO ONE (02:49)
[2024-03-12] MEDS ORDERED: BACITRACIN 0.9 GM PACKET ONE (03:06)
[2024-03-12] MEDS ORDERED: BACITRACIN ZINC 15 GM TUBE TOPICAL OINTMENT ONE (03:08)
[2024-03-12 03:19] VITALS: BP 102/76; PULSE 90; RESP 18; TEMP 97.5
== END 2024-03-12 05:00 | disposition home or self-care (01) ==
LOC: JER 01:08
DX: S00.83XA Contusion of other part of head, initial encounter (principal); W01.0XXA Fall on same level from slipping, tripping and stumbling without subsequent striking against object, initial encounter; Y92.015 Private garage of single-family (private) house as the place of occurrence of the external cause
CPT/HCPCS: 70450-TC; 70486-TC; 72126-TC; 99284-25; Q9967

== ENCOUNTER 2024-11-06 22:42 | Emergency (ER) | payer OTHER ==
[2024-11-06 23:03] VITALS: TEMP 98.4; BMI 23.3
[2024-11-06] MEDS ORDERED: IBUPROFEN 600 MG TABLET (FP) PO ONE (23:41)
[2024-11-06] MEDS ORDERED: ACETAMINOPHEN INJECTION 100 ML ONE (23:58)
[2024-11-06] MEDS ORDERED: LIDOCAINE 4% PATCH TP ONE (23:58)
[2024-11-07] MEDS: ACETAMINOPHEN 1000 MG/100 ML BAG IVPB ONE (00:23)
[2024-11-07] MEDS: LIDOCAINE 5% TOPICAL PATCH TP ONE (00:23)
[2024-11-07 00:42] LABS: ABSOLUTE IMMATURE GRANULOCYTES 0.01 x10^3/uL (0.0-0.031); BASOPHILS # 0.03 x10^3/uL (0.01-0.08); EOSINOPHIL % 3.6 % (0.7-5.8); EOSINOPHILS # 0.16 x10^3/uL (0.04-0.36); MCHC 33.2 g/dl (32.2-35.5); MEAN CELL VOLUME 99.5 fl (79.4-94.8); MEAN PLT VOLUME 10.0 fl (9.4-12.3); MONOCYTE # 0.42 x10^3/uL (0.24-0.86); MONOCYTE % 9.4 % (4.7-12.5); RDW 11.5 % (12.2-17.1)
[2024-11-07 01:07] LABS: GLUCOSE,RANDOM 91.0 mg/dL (74-106)
[2024-11-07 01:08] LABS: TOT PROT 7.9 g/dl (6.4-8.2)
[2024-11-07 01:09] LABS: CO2 26.0 mmol/L (21-32)
[2024-11-07 01:10] LABS: ALK PHOS 99.0 U/L (40-150)
[2024-11-07 01:13] LABS: SGOT/AST 30.0 U/L (5-34); SGPT/ALT 26.0 U/L (0-55)
[2024-11-07 01:50] VITALS: BP 140/96; PULSE 71; RESP 16
[2024-11-07 02:37] LABS: CREATININE 0.63 mg/dL (0.55-1.3)
[2024-11-07] MEDS ORDERED: LIDOCAINE PATCH REMOVAL MC ONE (12:00)
== END 2024-11-07 01:50 | disposition home or self-care (01) ==
LOC: JER 22:42
PROC: 3E033NZ Introduction of Analgesics, Hypnotics, Sedatives into Peripheral Vein, Percutaneous Approach (ICD-10-PCS; principal; 2024-11-06)
DX: R07.89 Other chest pain (principal); X50.0XXA Overexertion from strenuous movement or load, initial encounter
CPT/HCPCS: 36415; 71046-TC-FY; 80053; 84703; 85025; 85379; 93005; 93010; 99285-25